=== PATIENT | male | born 1995 | race African-American/Black ===

== ENCOUNTER 2024-10-09 12:31 | Emergency (ER) | payer SELFPAY ==
[~2024-10-09] VITALS: Ht 185.4 cm; Wt 100.0 kg
[2024-10-09] MEDS ORDERED: SUMATRIPTAN SUCCINATE 6MG/0.5ML VIAL SUBCUT ONE (14:15)
[2024-10-09] MEDS: KETOROLAC 30MG/ML VIAL IM ONE (14:29)
[2024-10-09] MEDS: SUMATRIPTAN SUCCINATE 6MG/0.5ML VIAL SUBCUT SCH (14:41)
[2024-10-09 16:23] VITALS: PULSE 83; RESP 19; O2SAT 97
[2024-10-09] MEDS: IPRATROPIUM BROMIDE (0.02%) 0.5MG/2.5ML NEB HHN STA (16:23)
[2024-10-09] MEDS: ALBUTEROL (0.083%) 2.5MG/3ML NEB HHN STA (16:23)
[2024-10-09] MEDS ORDERED: ALBU18HF2 IH (16:42)
[2024-10-09] MEDS ORDERED: SUMA11AE2 BOTHNSTRLS (16:42)
[2024-10-09] MEDS ORDERED: KETO10TA2 MT (16:42)
[2024-10-09] MEDS: PREDNISONE 20MG TABLET PO STA (16:53)
[2024-10-09 16:54] VITALS: BP 138/75; PULSE 82; RESP 15; TEMP 36.7; O2SAT 100
== END 2024-10-09 16:55 | disposition home or self-care (01) ==
LOC: ER 12:31
DX: G44.009 Cluster headache syndrome, unspecified, not intractable (principal); J45.909 Unspecified asthma, uncomplicated; Z79.899 Other long term (current) drug therapy
CPT/HCPCS: 94640; 96372; 99285; J7512; J1885; J3030; Z7610 ×4; 94070